=== PATIENT | male | born 1960 | race Caucasian/White ===

== ENCOUNTER → 2017-10-21 | Outpatient (CLI) | payer BC ==
--- NOTE | 2017-10-21 15:07 | CT ---
EXAMINATION TYPE: CT ChestAbdPelvis w con DATE OF EXAM: 10/21/2017 COMPARISON: NONE HISTORY: 57-year-old male with weight loss, change in bowel habits, cough, dyspnea TECHNIQUE: Contiguous axial scanning of the chest, abdomen, and pelvis performed with IV Contrast, pa tient injected with 100 mL of Omnipaque 300. Delayed images through the kidneys were obtained. Fletcher l/sagittal reconstructions performed. CT DLP: 470.2 mGycm Automated exposure control for dose reduction was used. FINDINGS: CHEST: Heart is normal size without pericardial effusion. Minimal coronary vessel calcifications are present . Aorta normal caliber with conventional arch vessel branching anatomy. No thoracic lymphadenopathy by CT size criteria. Some strandy atelectasis at the basilar right middle lobe. Mild diffuse bronchial wall thickening, mi nimal centrilobular emphysema in the apices as well as apical pleural parenchymal scarring. No consol idation or pleural effusion. No suspicious pulmonary mass. ABDOMEN: A 1.1 cm hypodense lesion anterior left hepatic lobe is too small for accurate CT characterization pr obably represents a cyst. Recommend three-month follow-up liver ultrasound to reassess. This is super ficially located anteriorly and should be fairly easy to visualize by ultrasound. Tiny subcentimeter hypodensity left hepatic dome, nonspecific, probable tiny cyst. Portal venous system is patent. No biliary ductal dilatation. Gallbladder, adrenal glands, kidneys, spleen, and pancreas appear within normal limits. No dilated small bowel, free fluid, or free air. Paucity of intra-abdominal fat limits assessment for lymphadenopathy. No obvious enlarged abdominal l ymph nodes are identified. Oral contrast has progressed to the proximal rectum. No pericolonic inflammatory change seen. Mild st ool burden in the left hemicolon. Pelvis: Bladder urine distended. Prostate gland is enlarged measuring 5.2 cm wide. Mild heterogeneous enhance ment of the prostate gland. No abnormal fluid collection in the pelvis or pelvic lymphadenopathy seen . Bones: No osseous destructive process. IMPRESSION: 1. PROSTATOMEGALY (5.2 CM WIDE). THERE IS HETEROGENEOUS ENHANCEMENT OF THE PROSTATE GLAND WHICH MAY R ELATE TO BPH. CORRELATE WITH PHYSICAL EXAM FINDINGS, PATIENT'S SYMPTOMS, AND PSA VALUES . 2. PAUCITY OF FAT LIMITS THE INTRA-ABDOMINAL SPACE. WITHIN THIS LIMITATION, THERE IS OTHERWISE NO TERE PICIOUS MASS OR LYMPHADENOPATHY IDENTIFIED TO SUGGEST MALIGNANCY. 3. A 1.1 CM HYPODENSE LESION ANTERIOR LEFT HEPATIC LOBE IS SUSPECTED TO REPRESENTS A CYST. RECOMMEND 3 MONTH FOLLOW-UP ULTRASOUND TO CONFIRM.
== END | disposition home or self-care (01) ==
LOC: RADCTMAIN 13:58
PROVIDERS: ATTEND Internal Medicine Hematology & Oncology
DX: N40.0 Benign prostatic hyperplasia without lower urinary tract symptoms (principal); R61 Generalized hyperhidrosis; R63.4 Abnormal weight loss
CPT/HCPCS: 71260; 74177; Q9967

== ENCOUNTER 2019-08-07 06:47 | Day surgery (SDC) | payer BC ==
[2019-08-03 11:15] VITALS: BMI 21.2
[~2019-08-07 06:47] MED LIST: LACTATED RINGERS 1,000 ML IV SCH; LIDOCAINE 1% 20 ML VIAL (10MG/ML) FOR IV START INTRADERMA PRN
[2019-08-07 07:17] VITALS: TEMP 98.5
[2019-08-07] MEDS ORDERED: PROPOFOL 10 MG/ML 20 ML VIAL IV ONE (07:40)
--- NOTE | 2019-08-07 07:47 | P.GSHP ---
History of Present Illness H&P Date: 08/07/19 Chief Complaint: GI bleed This 59-year-old male who presents today for initial screening colonoscopy. Patient had a positive colon Guard test. Past Medical History Additional Past Medical History / Comment(s): states positive cologaurd History of Any Multi-Drug Resistant Organisms: None Reported Past Surgical History: Hernia Repair Past Anesthesia/Blood Transfusion Reactions: No Reported Reaction Smoking Status: Current every day smoker - Past Family History Mother Family Medical History: No Reported History Medications and Allergies Home Medications Medication Instructions Recorded Confirmed Type PARoxetine [Paxil] 10 mg PO DAILY 08/03/19 08/07/19 History Allergies Allergy/AdvReac Type Severity Reaction Status Date / Time No Known Allergies Allergy Verified 08/07/19 07:11 Surgical - Exam Vital Signs Temp Pulse Resp BP Pulse Ox 98.5 F 82 17 121/69 100 08/07/19 07:15 08/07/19 07:15 08/07/19 07:15 08/07/19 07:15 08/07/19 07:15 - General well developed, well nourished, no distress - Eyes PERRL - ENT normal pinna - Neck no masses - Respiratory normal expansion - Cardiovascular Rhythm: regular - Abdomen Abdomen: soft, non tender Assessment and Plan Assessment: GI bleed Screening colonoscopy We'll perform colonoscopy.
[2019-08-07 08:21] VITALS: RESP 16
[2019-08-07 08:50] VITALS: BP 135/73; PULSE 75
--- NOTE | 2019-08-07 09:38 | P.OP ---
Date of Procedure: 08/07/19 Preoperative Diagnosis: Screening colonoscopy Postoperative Diagnosis: Left colon polyp Sigmoid colon polyp Procedure(s) Performed: Colonoscopy Anesthesia: MAC Surgeon: David Sy Pathology: other (Left colon polyp, sigmoid colon polyp) Condition: stable Disposition: PACU Description of Procedure: The patient's placed on the endoscopy table in the lateral position. He received IV sedation. Digital rectal exam was performed which revealed a few external hemorrhoids. Flexible colonoscope was then placed patient anus and passed with colon. The colon was very tortuous. The scope could not placed into the cecum secondary to tortuous valve. This point scope withdrawn. The ascending colon appeared normal. The transverse colon appeared normal. In the left colon there was a small sessile polyp was removed with a cold forcep. Scope summer back and the sigmoid colon there was a small polyp removed with snare. Scope summer back the rectum this appeared normal. Scope withdrawn for patient.
== END 2019-08-07 09:37 | disposition home or self-care (01) ==
LOC: ORWHC2ENDO 06:47
PROVIDERS: ATTEND Surgery
DX: K63.5 Polyp of colon (principal); F17.200 Nicotine dependence, unspecified, uncomplicated; K64.4 Residual hemorrhoidal skin tags; K92.1 Melena; Q43.8 Other specified congenital malformations of intestine; Z79.899 Other long term (current) drug therapy
CPT/HCPCS: 88305; 45385; 45380; J2704